=== PATIENT | female | born 1980 | race Caucasian/White ===

== ENCOUNTER 2016-08-23 05:38 | Inpatient (IN) ==
[2016-08-23] MEDS ORDERED: MEPERIDINE 50 MG/1 ML VIAL IV PRN (05:44)
[2016-08-23] MEDS ORDERED: ONDANSETRON 4 MG/2 ML VIAL IV PRN ×2 (05:44→12:36)
[2016-08-23] MEDS ORDERED: BUTORPHANOL 2 MG/ML VIAL IV PRN (05:44)
--- NOTE | 2016-08-23 05:59 | OB/GYN History & Physical ---
History of Present Illness Chief complaint: at 39 weeks multigravida low normal MANUELA favorable cervix History of present illness: Ms. Castellanos is a 36 year old female 5 para 4004 at 39 weeks estimated gestational age who was seen last week in labor department for NST and had a low normal MANUELA. Today ultrasound shows that her MANUELA is improved to 8. Ultrasound estimated weight is 7 lbs. 9 oz. confirmed vertex. She is 3-4 cm dilated with favorable Hickey score. She is consequently admitted for Pitocin induction. Risks benefits alternatives were explained patient detail and informed consent was obtained for the above. She has history of shingles and around the rectum she was inspected for this which showed no evidence of outbreak and she is culture negative. 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 - Constitutional General appearance: normal weight, no acute distress - Head Head exam: Present: normal inspection, normocephalic, atraumatic - Eye Eye exam: Present: EOMI - Neck Neck exam: Present: normal inspection - Respiratory Respiratory exam: Present: clear to auscultation bilaterally - Breast Breasts: as per HPI Menstruation: as per HPI - Cardiovascular Cardiovascular exam: Present: regular rate and rhythm - GI/Abdominal GI/Abdominal exam: Present: normal bowel sounds - Extremities Exam Extremities exam: Present: normal inspection, normal capillary refill - Back Exam Back exam: Present: normal inspection - Neurological Exam Neurological exam: Present: alert, oriented X3 - Psychiatric Psychiatric exam: Present: normal affect, normal mood - Skin Skin exam: Present: normal color Assessment and Plan (1) with 39 completed weeks gestation Status: Acute Current Visit: Yes (2) Elective induction of labor planned Status: Acute Current Visit: Yes (3) Grand multiparity Status: Acute Current Visit: Yes (4) Favorable Hickey score Status: Acute Current Visit: Yes
[2016-08-23] MEDS ORDERED: OXYTOCIN/LR 20 UNIT/1,000 ML BAG IV SCH (06:00)
[2016-08-23] MEDS: LACTATED RINGERS 1,000 ML IV SCH ×3 (06:15→15:19)
[2016-08-23 06:21] LABS: Basophils % 0.2 % (0.0-0.8); Eosinophils # 0.1 10*3/uL (0.0-0.87); Eosinophils % 0.9 % (0.00-10.9); Hemoglobin 12.6 GM/DL (12.0-16.0); Immature Granulocytes % 0.5 %; Immature Granulocytes Absolute 0.03 #; Lymphocytes # 1.1 10*3/uL (1.4-4.0); Lymphocytes % 16.4 % (21.3-54.2); Mean Corpuscular Hemoglobin 32 PG (27-34); Mean Corpuscular Volume 90.5 FL (87-102); Mean Platelet Volume 12.4 FL (9.6-12.0); Monocytes # 0.3 10*3/uL (0.11-0.8); Monocytes % 4.8 % (1.7-12.7); Neutrophils # 4.9 10*3/uL (1.4-7.4); Neutrophils % 77.2 % (38.7-73.9); Platelet Count 99 T/CUMM (130-400); Red Blood Count 3.98 MC/CUMM (3.8-5.5); Red Cell Distribution Width 14.2 % (9.3-17.3); White Blood Count 6.4 T/CUMM (4-12)
[2016-08-23 06:49] LABS: Alanine Aminotransferase 23 U/L (13-56); Albumin 2.6 G/DL (3.4-5.0); Alkaline Phosphatase 148 U/L (45-117); Aspartate Amino Transferase 18 U/L (0-37); Bilirubin,Total < 0.39 MG/DL (0.2-1.0); Blood Urea Nitrogen 8 MG/DL (7-18); Calcium 8.2 MG/DL (8.5-10.1); Glucose 78 MG/DL (74-106); Osmolality,Calculated 277.3 MOS/KG (273-304); Potassium 3.5 MMOL/L (3.5-5.1); Sodium 141 MMOL/L (136-145); Total Protein 5.6 G/DL (6.4-8.3)
[2016-08-23 07:13] LABS: Hypochromasia 2+; Microcytosis 1+
[2016-08-23] MEDS ORDERED: diphenhydrAMINE 50 MG/1 ML VIAL IV PRN (07:58)
[2016-08-23] MEDS ORDERED: fentaNYL 2 MCG/ROPIV 0.2% EPID 150 ML EPIDURAL SCH (07:58)
[2016-08-23] MEDS ORDERED: PROMETHAZINE 25 MG/1 ML VIAL IM ONE (07:58)
[2016-08-23] MEDS ORDERED: FAMOTIDINE 20 MG/2 ML VIAL IV ONE (07:58)
[2016-08-23] MEDS ORDERED: CITRIC ACID/SODIUM CITRATE 30 ML UDCUP PO ONE (07:58)
[2016-08-23] MEDS ORDERED: ePHEDrine 50 MG/ML AMP IV PRN (07:58)
[2016-08-23] MEDS ORDERED: miSOPROStol 200 MCG TABLET ONE (08:41)
[2016-08-23] MEDS ORDERED: LIDOCAINE 1% 50 ML VIAL ONE (08:41)
[2016-08-23] MEDS ORDERED: METHYLERGONOVINE 0.2 MG/1 ML AMP ONE (08:42)
[2016-08-23] MEDS ORDERED: AMPICILLIN INJ 2,000 MG in SODIUM CHLORIDE 0.9% 100 ML IV SCH (09:30)
[2016-08-23] MEDS ORDERED: AMPICILLIN 2,000 MG VIAL ONE (09:32)
[2016-08-23] MEDS ORDERED: SODIUM CHLORIDE 0.9% 100 ML IV ONE (09:32)
--- NOTE | 2016-08-23 12:35 | OB/GYN Progress Note ---
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 Garcia dictating vaginal delivery And in LDR environment under sterile conditions, the patient progressed to completely dilated. She was allowed to push and under [epidural] anesthesia had a normal spontaneous vaginal delivery of a live born female infant unweighed Apgars pending over a first-degree midline tear. The infant's nose and oropharynx were bulb and DeLee suctioned, and the infant had spontaneous cry after delivery. The cord was doubly clamped and cut and the infant was handed over to the pediatric team for care. Cord blood was obtained the placenta delivered spontaneously intact and IV Pitocin was done. There were no cervical tears. There were no periurethral tears. First-degree tear was repaired with 2-0 Monocryl suture in usual fashion under epidural anesthesia without complication estimated blood loss was 250 mL. There were no complications. The bladder was emptied using a catheter prior to delivery. All sponge needle and instrument counts were correct -3 at the end of the delivery. 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
[2016-08-23] MEDS ORDERED: OXYTOCIN/LR 20 UNIT/1,000 ML BAG IV ONE (12:36)
[2016-08-23] MEDS ORDERED: DIPH/TET/ACEL PERT BOOSTER VACCINE 0.5 ML VIAL IM ONE (12:36)
[2016-08-23] MEDS ORDERED: ACETAMINOPHEN 325 MG TABLET PO PRN (12:36)
[2016-08-23] MEDS ORDERED: MEASLES/MUMPS/RUBELLA VACCINE 0.5 ML VIAL SUBCUT ONE (12:36)
[2016-08-23] MEDS ORDERED: BENZOCAINE 20%/MENTHOL 0.5% SPRAY 56 GM CAN TOP PRN (12:36)
[2016-08-23] MEDS ORDERED: RHO(D) IMMUNE GLOBULIN 300 MCG SYRINGE IM ONE (12:36)
[2016-08-23] MEDS ORDERED: oxyCODONE/ACETAMINOPHEN 5-325 MG TABLET PO PRN ×2 (12:36)
[2016-08-23] MEDS ORDERED: BISACODYL 10 MG SUPP RECTAL PRN (12:36)
[2016-08-23] MEDS ORDERED: LANOLIN 50% CREAM 0.3 OZ TUBE TOP PRN (12:36)
[2016-08-23] MEDS ORDERED: HYDROCORTISONE 2.5% RECTAL CREAM 30 GM TUBE TOP PRN (12:36)
[2016-08-23] MEDS ORDERED: WITCH HAZEL PADS 100/JAR TOP PRN (12:36)
[2016-08-23] MEDS: DOCUSATE SODIUM 100 MG CAPSULE PO SCH (21:05)
[2016-08-23] MEDS: IBUPROFEN 800 MG TABLET PO PRN (21:05)
[2016-08-24] MEDS: IBUPROFEN 800 MG TABLET PO PRN ×3 (05:49→21:54)
[2016-08-24 06:27] LABS: Basophils % 0.1 % (0.0-0.8); Eosinophils # 0.1 10*3/uL (0.0-0.87); Eosinophils % 2.1 % (0.00-10.9); Hematocrit 32.7 VOL% (35.7-47.0); Hemoglobin 11.3 GM/DL (12.0-16.0); Immature Granulocytes % 0.4 %; Immature Granulocytes Absolute 0.03 #; Lymphocytes # 1.3 10*3/uL (1.4-4.0); Lymphocytes % 18.6 % (21.3-54.2); Mean Corpuscular HGB Conc 34.6 GM/DL (32-36); Mean Corpuscular Hemoglobin 32 PG (27-34); Mean Corpuscular Volume 91.3 FL (87-102); Mean Platelet Volume 12.8 FL (9.6-12.0); Monocytes # 0.4 10*3/uL (0.11-0.8); Monocytes % 5.7 % (1.7-12.7); Neutrophils % 73.1 % (38.7-73.9); Platelet Count 97 T/CUMM (130-400); Red Blood Count 3.58 MC/CUMM (3.8-5.5); Red Cell Distribution Width 14.3 % (9.3-17.3); White Blood Count 6.8 T/CUMM (4-12)
--- NOTE | 2016-08-24 06:28 | OB/GYN Progress Note ---
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
[2016-08-24 07:12] LABS: Band Neutrophils 1 % (0-10); Eosinophils 1 % (0-10); Lymphocytes 15 % (20-55); Nucleated Red Blood Cells 1 (0-5); Segmented Neutrophils 78 % (50-85); Total Cells Counted 100
[2016-08-24 07:13] LABS: Hypochromasia 1+; Microcytosis 1+; Ovalocytes Slight; Platelet Estimate Decreased
[2016-08-24] MEDS: DOCUSATE SODIUM 100 MG CAPSULE PO SCH ×2 (08:51→21:53)
[2016-08-24] MEDS ORDERED: RHO(D) IMMUNE GLOBULIN 300 MCG SYRINGE IM ONE (09:18)
--- NOTE | 2016-08-24 10:43 | Anesthesia Post-Op ---
Anesthesia Post OP - Post Ansesthetic Evaluation Patient seen in post op: Yes Resp: within normal limits CV: within normal limits Mental: within normal limits Temp: within normal limits [id number]: within normal limits Nausea and Vomiting: within normal limits Pain: within normal limits
[2016-08-25] MEDS: IBUPROFEN 800 MG TABLET PO PRN (04:37)
[2016-08-25 07:24] VITALS: BP 93/57
[2016-08-25] MEDS: DOCUSATE SODIUM 100 MG CAPSULE PO SCH (08:38)
--- NOTE | 2016-08-25 08:40 | Discharge Summary ---
Hospital Course - Hospital Course Hospital Course: patient did well. She had quick return of bowel bladder function. She remained afebrile and normotensive throughout her hospitalization. He is constantly discharged on day #2 Diagnosis - Discharge Diagnosis (1) with 39 completed weeks gestation Status: Acute (2) Elective induction of labor planned Status: Acute (3) Grand multiparity Status: Acute (4) Favorable Hickey score Status: Acute Specialty Discharge - Follow Up or Referrals Follow up with: Fly Garcia MD [Physician] - Discharge Plan - Discharge Data Disposition: Disch To Home/Self Care Discharge Diet: regular diet Activity: increase activity as tolerated, other (Pelvic rest) Hygiene: may shower Weight Bearing at Discharge: full weight bearing Driving: no restrictions Contact your physician if you experience:: fever over 101, Difficulty voiding, Redness or swelling, Nausea/Vomiting, Shortness of breath, Bleeding, pain uncontrolled by pain medications - Discharge Medications New Acetamin/Codeine 300-30 Tab [Tylenol/Codeine #3] 1 tablet PO Q4H PRN #15 tablet PRN Reason: Abdominal Pain Discontinued Vits #90/Iron Fum/FA [ Formula Tablet] 1 mg PO DAILY - Follow Up or Referral Follow Up: Fly Garcia MD [Physician] - 2 Weeks - Forms/Instructions Instructions: Depression (GEN), Perineal Care (DC), Vaginal Delivery (DC), Bleeding (DC) Exam - Constitutional Vitals: Period Temp Pulse Resp BP Sys/Friedman Pulse Ox Last 24 Hr 97.6 F-98.5 F 53-100 18-20 93-99/47-60 DS: Provider Date of admission: 08/23/16 05:44 Primary care physician: . No PCP Attending physician on admission: Jesusita Licea Consults: 08/23/16 05:44 Consult to Anesthesiology [CONS] Routine Consulting Provider: Reason for Anesthesiology: Epidural Consult Comment: Epidural for pain managment 08/23/16 12:36 Consult to Counter Manager [CONS] Routine Consult Counter Manager: Breast Feeding Discharging clinician: Jesusita Licea Expected date of discharge: 08/25/16
== END 2016-08-25 13:20 | disposition home or self-care (01) | DRG 560 ==
LOC: N.LDOUT 05:38 → N.LD 05:40 → N.OB 15:35
PROVIDERS: ADMIT Specialist; ATTEND Specialist

== ENCOUNTER 2019-02-18 05:50 | Inpatient (IN) ==
[2019-02-18] MEDS ORDERED: MEPERIDINE 50 MG/1 ML VIAL IM PRN (06:15)
[2019-02-18] MEDS ORDERED: LACTATED RINGERS 250 ML IV ONE (06:15)
[2019-02-18] MEDS ORDERED: ONDANSETRON 4 MG/2 ML VIAL IV PRN ×2 (06:15→12:14)
[2019-02-18] MEDS ORDERED: BUTORPHANOL 2 MG/ML VIAL IV PRN (06:15)
[2019-02-18] MEDS ORDERED: INFLUENZA VIRUS VACCINE 0.5 ML SYRINGE IM ONE (06:22)
[2019-02-18] MEDS ORDERED: OXYTOCIN/LR 20 UNIT/1,000 ML BAG IV SCH (06:30)
[2019-02-18 06:39] LABS: Basophils % 0.1 % (0.0-0.8); Eosinophils # 0.2 10*3/uL (0.0-0.87); Eosinophils % 2.1 % (0.00-10.9); Hemoglobin 11.2 GM/DL (12.0-16.0); Immature Granulocytes % 0.4 %; Immature Granulocytes Absolute 0.03 #; Lymphocytes # 1.2 10*3/uL (1.4-4.0); Lymphocytes % 17.1 % (21.3-54.2); Mean Corpuscular HGB Conc 32.9 GM/DL (32-36); Mean Corpuscular Volume 91.6 FL (87-102); Mean Platelet Volume 11.6 FL (9.6-12.0); Monocytes % 5.1 % (1.7-12.7); Neutrophils % 75.2 % (38.7-73.9); Platelet Count 123 T/CUMM (130-400); Red Blood Count 3.71 MC/CUMM (3.8-5.5); Red Cell Distribution Width 13.9 % (9.3-17.3); White Blood Count 7.3 T/CUMM (4-12)
[2019-02-18 07:11] LABS: Alanine Aminotransferase 15 U/L (13-56); Albumin 2.6 G/DL (3.4-5.0); Alkaline Phosphatase 129 U/L (45-117); Aspartate Amino Transferase 12 U/L (0-37); Bilirubin,Total < 0.39 MG/DL (0.2-1.0); Blood Urea Nitrogen 10 MG/DL (7-18); Calcium 8.1 MG/DL (8.5-10.1); Estimated Glom Filtration Rate 120 ML/MIN; Glucose 76 MG/DL (74-106); Osmolality,Calculated 276.4 MOS/KG (273-304); Total Protein 6.2 G/DL (6.4-8.3)
[2019-02-18] MEDS: LACTATED RINGERS 1,000 ML IV SCH ×2 (07:47→09:35)
[2019-02-18] MEDS ORDERED: FAMOTIDINE 20 MG/2 ML VIAL IV ONE (08:13)
[2019-02-18] MEDS ORDERED: diphenhydrAMINE 50 MG/1 ML VIAL IV PRN ×2 (08:13)
[2019-02-18] MEDS ORDERED: CITRIC ACID/SODIUM CITRATE 30 ML UDCUP PO ONE (08:13)
[2019-02-18] MEDS ORDERED: PROMETHAZINE 25 MG/1 ML VIAL IM ONE (08:13)
[2019-02-18] MEDS ORDERED: ONDANSETRON 4 MG/2 ML VIAL IV ONE (08:13)
[2019-02-18] MEDS ORDERED: NALOXONE 0.4 MG/ML VIAL IV PRN (08:13)
[2019-02-18] MEDS ORDERED: ePHEDrine 50 MG/ML AMP IV PRN (08:13)
[2019-02-18] MEDS ORDERED: hydrOXYzine HCL 25 MG/1 ML VIAL IM PRN (08:13)
[2019-02-18] MEDS ORDERED: fentaNYL 2 MCG/ROPIV 0.2% EPID 100 ML EPIDURAL SCH (08:30)
[2019-02-18] MEDS ORDERED: METHYLERGONOVINE 0.2 MG/1 ML AMP ONE (11:54)
[2019-02-18] MEDS ORDERED: miSOPROStoL 200 MCG TABLET ONE (11:54)
[2019-02-18] MEDS ORDERED: LIDOCAINE 1% 50 ML VIAL ONE (11:55)
[2019-02-18] MEDS ORDERED: CARBOPROST TROMETHAMINE 250 MCG/ML AMP IM ONE (11:55)
[2019-02-18] MEDS ORDERED: MEASLES/MUMPS/RUBELLA VACCINE 0.5 ML VIAL SUBCUT ONE (12:14)
[2019-02-18] MEDS ORDERED: ACETAMINOPHEN 325 MG TABLET PO PRN (12:14)
[2019-02-18] MEDS ORDERED: OXYTOCIN/LR 20 UNIT/1,000 ML BAG IV ONE (12:14)
[2019-02-18] MEDS ORDERED: HYDROCORTISONE 2.5% RECTAL CREAM 30 GM TUBE TOP PRN (12:14)
[2019-02-18] MEDS ORDERED: BISACODYL 10 MG SUPP RECTAL PRN (12:14)
[2019-02-18] MEDS ORDERED: WITCH HAZEL PADS 100/JAR TOP PRN (12:14)
[2019-02-18] MEDS ORDERED: BENZOCAINE 20%/MENTHOL 0.5% SPRAY 56 GM CAN TOP PRN (12:14)
[2019-02-18] MEDS ORDERED: DIPH/TET/ACEL PERT BOOSTER VACCINE 0.5 ML VIAL IM ONE (12:14)
[2019-02-18] MEDS ORDERED: oxyCODONE/ACETAMINOPHEN 5-325 MG TABLET PO PRN ×2 (12:14)
[2019-02-18] MEDS ORDERED: RHO(D) IMMUNE GLOBULIN 300 MCG SYRINGE IM ONE (12:14)
[2019-02-18] MEDS ORDERED: LANOLIN 50% CREAM 0.3 OZ TUBE TOP PRN (12:14)
[2019-02-18] MEDS: DOCUSATE SODIUM 100 MG CAPSULE PO SCH (20:28)
[2019-02-18] MEDS: IBUPROFEN 800 MG TABLET PO PRN (20:28)
[2019-02-19] MEDS: IBUPROFEN 800 MG TABLET PO PRN ×3 (04:13→21:19)
[2019-02-19 05:32] LABS: Basophils % 0.2 % (0.0-0.8); Eosinophils # 0.2 10*3/uL (0.0-0.87); Eosinophils % 2.3 % (0.00-10.9); Hematocrit 30.6 VOL% (35.7-47.0); Hemoglobin 10.2 GM/DL (12.0-16.0); Immature Granulocytes % 0.5 %; Immature Granulocytes Absolute 0.05 #; Lymphocytes # 1.3 10*3/uL (1.4-4.0); Lymphocytes % 13.8 % (21.3-54.2); Mean Corpuscular HGB Conc 33.3 GM/DL (32-36); Mean Corpuscular Volume 91.9 FL (87-102); Mean Platelet Volume 11.8 FL (9.6-12.0); Monocytes % 8.8 % (1.7-12.7); Neutrophils % 74.4 % (38.7-73.9); Platelet Count 126 T/CUMM (130-400); Red Blood Count 3.33 MC/CUMM (3.8-5.5); White Blood Count 9.6 T/CUMM (4-12)
[2019-02-19] MEDS: DOCUSATE SODIUM 100 MG CAPSULE PO SCH ×2 (10:37→21:19)
[2019-02-20] MEDS: IBUPROFEN 800 MG TABLET PO PRN (06:20)
[2019-02-20 07:22] VITALS: BP 94/58
[2019-02-20] MEDS: DOCUSATE SODIUM 100 MG CAPSULE PO SCH (10:15)
[2019-02-20] MEDS ORDERED: INFLUENZA VIRUS VACCINE 0.5 ML SYRINGE IM ONE (11:52)
[2019-02-20] MEDS ORDERED: DIPH/TET/ACEL PERT BOOSTER VACCINE 0.5 ML VIAL IM ONE (12:19)
== END 2019-02-20 13:00 | disposition home or self-care (01) | DRG 560 ==
LOC: N.LDOUT 05:50 → N.LD 05:55 → N.OB 16:33
PROVIDERS: ADMIT Specialist; ATTEND Specialist